=== PATIENT | female | born 2000 | race Caucasian/White ===

== ENCOUNTER 2019-09-20 07:55 | Inpatient (IN) ==
[2019-09-20] MEDS ORDERED: Ondansetron 4 MG/2 ML VIAL IVP PRN (09:12)
[2019-09-20] MEDS ORDERED: Naloxone 0.4 MG/ML INJ IVP PRN (09:12)
[2019-09-20] MEDS ORDERED: Famotidine 20 MG/2 ML VIAL IVP PRN (09:12)
[2019-09-20] MEDS ORDERED: Metoclopramide 10 MG/2 ML VIAL IVP PRN (09:12)
[2019-09-20] MEDS ORDERED: Ringers Solution, Lactated 1,000 ML IVC SCH (09:15)
[2019-09-20] MEDS ORDERED: miSOPROStoL 100 MCG TABLET PO STA (09:18)
[2019-09-20 09:29] LABS: Basophils % 0.4 %; Eosinophils # 0.2 K/mcL (0.0-0.6); Eosinophils % 3.6 %; Hematocrit 36.6 % (35.3-44.9); Hemoglobin 11.9 g/dL (11.5-15.4); Immature Granulocytes % 0.2 % (0-4); Lymphocytes # 1.6 K/mcL (0.6-4.6); Lymphocytes % 29.7 %; Mean Corpuscular HGB Conc 32.5 g/dL (31.6-35.5); Mean Corpuscular Hemoglobin 29.2 pg (28.0-33.3); Mean Corpuscular Volume 89.7 fL (83.0-100.0); Monocytes # 0.5 K/mcL (0.0-1.3); Monocytes % 9.5 %; Neutrophils # 3.1 K/mcL (1.6-8.9); Platelet Count 189 K/mcL (140-400); Red Blood Count 4.08 M/mcL (3.82-4.97); Segmented Neutrophils % 56.6 %; White Blood Count 5.5 K/mcL (4.3-11.1)
[2019-09-20 09:38] LABS: Amphetamine Screen,Urine Negative ng/mL (Cutoff=1000); Barbiturate Screen,Urine Negative ng/mL (Cutoff=200); Benzodiazepines Screen,Urine Negative ng/mL (Cutoff=200); Cannabinoid Screen,Urine Negative ng/mL (Cutoff = 50); Cocaine Screen,Urine Negative ng/mL (Cutoff= 300); Opiate Screen,Urine Negative ng/mL (Cutoff=300); Phencyclidine Screen,Urine Negative ng/mL (Cutoff=25)
[2019-09-20] MEDS: miSOPROStoL 100 MCG TABLET PO SCH ×2 (14:47→19:39)
[2019-09-21] MEDS ORDERED: miSOPROStoL 100 MCG TABLET VG SCH ×2 (01:30→01:45)
[2019-09-21] MEDS: *HR* FentaNYL (PF) 100 MCG/2 ML VIAL IVP PRN ×2 (09:08→09:48)
[2019-09-21] MEDS ORDERED: *HR* FentaNYL (PF) 100 MCG/2 ML VIAL IVP ONE ×2 (09:44→10:08)
[2019-09-21] MEDS ORDERED: Ibuprofen 600 MG TABLET PO PRN (11:14)
[2019-09-21] MEDS ORDERED: Methylergonovine 0.2 MG/ML AMPUL IM ONE (14:14)
== END 2019-09-21 14:15 | disposition home or self-care (01) | DRG 779 ==
LOC: 1NENULAB 07:55
PROVIDERS: ADMIT Obstetrics & Gynecology; ATTEND Obstetrics & Gynecology

== ENCOUNTER 2021-03-08 11:35 | Inpatient (IN) ==
[2021-03-08] MEDS ORDERED: Famotidine 20 MG/2 ML VIAL IVP PRN (11:39)
[2021-03-08] MEDS ORDERED: Naloxone 0.4 MG/ML INJ IVP PRN (11:39)
[2021-03-08] MEDS ORDERED: *HR* Nalbuphine 10 MG/ML AMPUL IV PRN (11:39)
[2021-03-08] MEDS ORDERED: Metoclopramide 10 MG/2 ML VIAL IVP PRN (11:39)
[2021-03-08] MEDS ORDERED: Ondansetron 4 MG/2 ML VIAL IVP PRN (11:39)
[2021-03-08] MEDS ORDERED: Lidocaine -MPF 2% 5 ML VIAL ONE (13:26)
[2021-03-08] MEDS ORDERED: miSOPROStoL 25 MCG TABLET PO STA (13:35)
[2021-03-08 13:44] LABS: Influenza A PCR Negative (Negative); Influenza B PCR Negative (Negative); Resp. Syncytial Virus PCR Negative (Negative)
[2021-03-08 13:44] LABS: Immature Granulocytes % 0.5 % (0-4); Mean Corpuscular Hemoglobin 26.7 pg (28.0-33.3); Platelet Count 170 K/mcL (140-400)
[2021-03-08 13:46] LABS: SARS-CoV-2 by PCR (In House) Positive (Negative)
[2021-03-08 13:46] LABS: Basophils % 0.7 %; Eosinophils # 0.1 K/mcL (0.0-0.6); Eosinophils % 1.2 %; Hematocrit 33.1 % (35.3-44.9); Hemoglobin 10.4 g/dL (11.5-15.4); Immature Platelets 18.4 % (1.1-6.1); Lymphocytes # 1.2 K/mcL (0.6-4.6); Lymphocytes % 20.1 %; Mean Corpuscular HGB Conc 31.4 g/dL (31.6-35.5); Mean Corpuscular Volume 85.1 fL (83.0-100.0); Mean Platelet Volume 12.9 fL (9.4-12.4); Monocytes % 17.6 %; Neutrophils # 3.4 K/mcL (1.6-8.9); Red Blood Count 3.89 M/mcL (3.82-4.97); Red Cell Distribution Width 15.3 % (11.5-14.5); Segmented Neutrophils % 59.9 %; White Blood Count 5.7 K/mcL (4.3-11.1)
[2021-03-08 13:54] LABS: Protein/Creatinine Ratio,Urine 1.08 mg/mg (0.00-0.20)
[2021-03-08 14:18] LABS: Alanine Aminotransferase 11 Units/L (7-52); Aspartate Amino Transferase 13 Units/L (13-39); BUN/Creatinine Ratio 19 (6-26); Blood Urea Nitrogen 9 mg/dL (6-20); Lactate Dehydrogenase 148 Units/L (140-271); Uric Acid 5.2 mg/dL (2.3-7.6); eGFR For African Americans > 60 (> 60); eGFR For Non-African Americans > 60 (> 60)
[2021-03-08] MEDS ORDERED: EPHEDrine 50 MG/ML VIAL IVP PRN (14:42)
[2021-03-08] MEDS ORDERED: *HR* FentaNYL (PF) 100 MCG/2 ML VIAL EP ONE (14:42)
[2021-03-08] MEDS ORDERED: Ropivacaine/PF 0.2% 20 ML VIAL EP ONE (14:42)
[2021-03-08] MEDS ORDERED: Epidural Premix (fent/bupiv) 110 ML EP SCH (14:45)
[2021-03-08 15:39] LABS: Amphetamine Screen,Urine Negative ng/mL (Cutoff=1000); Barbiturate Screen,Urine Negative ng/mL (Cutoff=200); Benzodiazepines Screen,Urine Negative ng/mL (Cutoff=200); Cannabinoid Screen,Urine Negative ng/mL (Cutoff = 50); Cocaine Screen,Urine Negative ng/mL (Cutoff= 300); Opiate Screen,Urine Negative ng/mL (Cutoff=300); Phencyclidine Screen,Urine Negative ng/mL (Cutoff=25)
[2021-03-08] MEDS: Ringers Solution, Lactated 1,000 ML IVC SCH ×2 (18:07→21:00)
[2021-03-08] MEDS ORDERED: Oxytocin 20 units/ LR 1000 mL 20 UNIT/1,000 ML BAG IVC SCH ×2 (18:15→23:45)
[2021-03-08] MEDS ORDERED: *HR* FentaNYL (PF) 100 MCG/2 ML VIAL ONE (21:51)
[2021-03-08] MEDS ORDERED: Ropivacaine/PF 0.2% 20 ML VIAL ONE (21:51)
[2021-03-08] MEDS ORDERED: Lidocaine 1% 20 ML MDV ONE (22:23)
[2021-03-08] MEDS ORDERED: Benzocaine/Menthol 56 GM AEROSOL SPRAY TP PRN (23:45)
[2021-03-08] MEDS ORDERED: Lanolin 7 G OINT...G. TP PRN (23:45)
[2021-03-08] MEDS ORDERED: Ondansetron ODT 4 MG TAB.RAPDIS SL PRN (23:45)
[2021-03-08] MEDS: Ibuprofen 600 MG TABLET PO SCH (23:58)
[2021-03-09] MEDS: Prenatal Vit/FA 1 EACH TABLET PO SCH (09:05)
[2021-03-09] MEDS: Ibuprofen 600 MG TABLET PO SCH ×2 (09:18→15:05)
[2021-03-09] MEDS: Acetaminophen 325 MG TABLET PO SCH ×3 (11:17→19:54)
[2021-03-09 20:52] VITALS: O2SAT 99
[2021-03-10] MEDS: Ibuprofen 600 MG TABLET PO SCH (00:05)
[2021-03-10] MEDS: Acetaminophen 325 MG TABLET PO SCH (03:32)
[2021-03-10 09:46] VITALS: BP 122/84; PULSE 99; TEMP 97.9
[2021-03-10] MEDS: Prenatal Vit/FA 1 EACH TABLET PO SCH (09:50)
== END 2021-03-10 15:10 | disposition home or self-care (01) | DRG 805 ==
LOC: 1NENULAB 11:35 → 1NENUOBS 03-09 01:25
PROVIDERS: ADMIT Registered Nurse; ATTEND Registered Nurse